=== PATIENT | male | born 1955 | race Caucasian/White ===

== ENCOUNTER → 2018-05-29 | Outpatient (CLI) | payer OTHER | LOC: CIMAGING 15:29 | PROVIDERS: ATTEND Family Medicine | DX: J42 Unspecified chronic bronchitis (principal) | CPT/HCPCS: 71046-PO ==

== ENCOUNTER → 2018-06-02 | Outpatient (CLI) | payer MEDICAID, OTHER | LOC: CIMAGING 11:21 | PROVIDERS: ATTEND Family Medicine | DX: Z12.2 Encounter for screening for malignant neoplasm of respiratory organs (principal) ==